=== PATIENT | female | born 1985 | race Caucasian/White ===

== ENCOUNTER 2019-07-02 19:44 | Inpatient (IN) | payer OTHER ==
[~2019-07-02] VITALS: Ht 165.1 cm; Wt 126.7 kg
[2019-07-02] MEDS ORDERED: IBUP200C25 PO (19:51)
[2019-07-02] MEDS ORDERED: OXYC15TA76 PO (19:51)
[2019-07-02] MEDS ORDERED: ACET500T15 PO (19:51)
[2019-07-02 20:51] LABS: BASO # 0.1 10^3/uL (0.0-0.2); BASO % 0.5 % (0.0-1.0); EOS # 0.5 10^3/uL (0.0-0.5); EOS % 4.7 % (0.0-3.0); HEMATOCRIT 30.1 % (36.0-47.0); HEMOGLOBIN 9.5 g/dl (12.0-15.5); LYMPH # 1.9 10^3/uL (1.5-5.0); LYMPH % 19.7 % (24.0-44.0); MEAN CORPUSCULAR HEMOGLOBIN 27.1 pg (27.0-33.0); MEAN CORPUSCULAR HGB CONC 31.6 g/dl (32.0-36.5); MEAN CORPUSCULAR VOLUME 85.8 fl (80.0-96.0); MONO # 0.5 10^3/uL (0.0-0.8); MONO % 4.6 % (0.0-5.0); NEUTROPHILS # 6.8 10^3/uL (1.5-8.5); NEUTROPHILS % 69.9 % (36.0-66.0); PLATELET COUNT, AUTOMATED 330 10^3/uL (150-450); RED BLOOD COUNT 3.51 10^6/uL (4.00-5.40); WHITE BLOOD COUNT 9.7 10^3/uL (4.0-10.0)
[2019-07-02] MEDS: DOCUSATE SODIUM 100 MG CAP PO SCH (21:00)
[2019-07-02] MEDS: ENOXAPARIN 120 MG/0.8 ML SYR (J1650) SC SCH (21:00)
[2019-07-02 21:33] LABS: ALBUMIN 2.4 GM/DL (3.2-5.2); ALT/SGPT 24 U/L (12-78); BILIRUBIN,DIRECT < 0.1 MG/DL (0.0-0.2); BILIRUBIN,TOTAL 0.2 MG/DL (0.2-1.0); BLOOD UREA NITROGEN 16 MG/DL (7-18); CALCIUM LEVEL 8.4 MG/DL (8.5-10.1); CARBON DIOXIDE LEVEL 28 MEQ/L (21-32); CHLORIDE LEVEL 107 MEQ/L (98-107); CK-MB VALUE MASS < 1.0 NG/ML (<3.6); CPK CREATINE PHOSPHOKINASE 54 U/L (26-192); CREATININE FOR GFR 0.73 MG/DL (0.55-1.30); GLOMERULAR FILTRATION RATE > 60.0 (>60); GLUCOSE, FASTING 94 MG/DL (70-100); LIPASE 87 U/L (73-393); MB/CK RELATIVE INDEX 1.85 (< OR =4); NT-PRO BNP 69 PG/ML (<125); POTASSIUM SERUM 4.4 MEQ/L (3.5-5.1); SODIUM LEVEL 141 MEQ/L (136-145); TOTAL PROTEIN 5.9 GM/DL (6.4-8.2); TROPONIN I < 0.02 NG/ML (< 0.10)
[2019-07-02] MEDS ORDERED: ISOVUE-370 76% 100ML VIAL (Q9967) As Ordered ONE (22:16)
--- NOTE | 2019-07-02 23:55 | REPVR ---
PROCEDURE INFORMATION: Exam: CT Angiography Chest With Contrast Exam date and time: 07/02/2019 10:01 PM Age: 34 years old Clinical indication: Chest pain; Type not specified; Additional info: Son/csection 4 days ago TECHNIQUE: Imaging protocol: Computed tomographic angiography of the chest with intravenous contrast. 3D rendering: MIP and/or 3D reconstructed images were created by the technologist. Radiation optimization: All CT scans at this facility use at least one of these dose optimization techniques: automated exposure control; mA and/or kV adjustment per patient size (includes targeted exams where dose is matched to clinical indication); or iterative reconstruction. Contrast material: ISO; Contrast volume: 75 ml; Contrast route: AC; COMPARISON: CR PORTABLE CHEST X-RAY 07/02/2019 8:31 PM FINDINGS: Pulmonary arteries: Inadequate opacification of pulmonary arteries with motion artifact centrally. Pulmonary embolism is not excluded. Aorta: Motion artifact obscures margination for measurement. Lungs: Unremarkable. No consolidation. No masses. Pleural space: Unremarkable. No pneumothorax. No pleural effusion. Heart: Unremarkable. No cardiomegaly. No pericardial effusion. Lymph nodes: Unremarkable. No enlarged lymph nodes. Bones/joints: Unremarkable. No acute fracture. Soft tissues: Unremarkable. IMPRESSION: Inadequate opacification of pulmonary arteries. Pulmonary embolism is not excluded. Electronically signed by: Fercho Banks On 07/02/2019 23:54:59 PM
--- NOTE | 2019-07-03 00:59 | REPVR ---
PROCEDURE INFORMATION: Exam: US Duplex Lower Extremity Veins Exam date and time: 07/03/2019 12:51 AM Age: 34 years old Clinical indication: Pain; Leg, upper and leg, lower; Bilateral; Patient HX: on Saturday; Additional info: Swelling/pain TECHNIQUE: Imaging protocol: Real-time duplex ultrasound of the Lower Extremities with 2-D hu scale, color Doppler flow and spectral waveform analysis with image documentation. Complete exam focused on the bilateral lower extremity veins. COMPARISON: No relevant prior studies available. FINDINGS: Right deep veins: Unremarkable. The common femoral, femoral, proximal profunda femoral and popliteal veins are patent without thrombus. Normal Doppler waveforms. Normal compressibility and/or augmentation response. Right superficial veins: Saphenofemoral junction is patent without thrombus. Left deep veins: Unremarkable. The common femoral, femoral, proximal profunda femoral and popliteal veins are patent without thrombus. Normal Doppler waveforms. Normal compressibility and/or augmentation response. Left superficial veins: Saphenofemoral junction is patent without thrombus. Soft tissues: Unremarkable. IMPRESSION: Negative bilateral lower extremity venous duplex exam without evidence of deep venous thrombosis. Electronically signed by: Fercho Banks On 07/03/2019 00:59:24 AM
--- NOTE | 2019-07-03 01:03 | REP ---
Clinical: Chest pain . Comparison: None . Findings: The mediastinum and cardiac silhouette are stable and within normal limits for portable technique. The lung rosado are clear without acute consolidation, effusion, or pneumothorax. Skeletal structures are intact. Impression: No acute cardiopulmonary process appreciated. Electronically Signed by Eric Alfaro MD 07/03/2019 12:56 A
--- NOTE | 2019-07-03 01:41 | HPEPDOC ---
[facility] Medical History & Physical Date of Admission Jul 03, 2019 Date of Service: Jul 03, 2019 Primary Care Physician: A Other Provider Zaynab Capps Attending Physician: KIM RAMSEY MD History and Physical TIME OF SERVICE: 2:20 AM CHIEF COMPLAINT: Chest pain HISTORY OF PRESENT ILLNESS: This is a 34-year-old female who presents with complaints of 6 out of 10 bilateral chest and back pain that began yesterday. The pain, which is now resolved was made worse by taking deep breaths and was alleviated by resting. Others as he does symptoms include lightheadedness and lower extremity edema She gave 5 days ago at [facility]. Her baby is currently in the NICU here. Her d-dimer was elevated, she had a CTA of the chest which was indeterminate because of inadequate opacification of the pulmonary arteries and negative bilateral lower extremity duplex. Per discussion with ER provider the CTA cannot be repeated for 24 hours. REVIEW OF SYSTEMS: 12 point review of systems negative except as listed in HPI PAST MEDICAL/ SURGICAL HISTORY: Anemia. Hypothyroidism SOCIAL HISTORY: She doesn't smoke FAMILY HISTORY: Coronary artery disease. Her sister had "blood clots" after a cholecystectomy ALLERGIES: Please see below. HOME MEDICATIONS: Please see below. PHYSICAL EXAMINATION: VITAL SIGNS: Please see below. GEN: well-nourished / well developed/not apprehensive INTEGUMENT: not flushed HEENT: NCAT CVS: RRR/NMRG/ 3+ bilateral lower extremity extremity edema / chest pain is not reproducible with palpation LUNGS: lungs are clear to auscultation bilaterally on room air ABDOMEN: Contour ( obese) / soft & not tender with palpation MSK/EXTREMITIES: range of motion intact in all 4 extremities NEURO: CN 2-12 are grossly intact / speech is not dysarthric PSYCH: alert and oriented to person place and time/ able to understand and follow all commands LABORATORY DATA: See below. IMAGING: Chest x-ray unremarkable. CTA " IMPRESSION: Inadequate opacification of pulmonary arteries. Pulmonary embolism is not excluded. " Bilateral ultrasound of the lower extremities " IMPRESSION: Negative bilateral lower extremity venous duplex exam without evidence of deep venous thrombosis. " ASSESSMENT: Ms. White is a 34-year-old female with a history of hypothyroidism and anemia who is 5 days ; she presented with complaints of chest pain and lower extremity edema and will be admitted pending VQ scan to rule out PE. PLAN: 1. Chest pain. Possibly due to anxiety vs PE vs preeclampsia D-dimer, CT, and bilateral lower extremity duplex as above She is not hypotensive or bradycardic and based on the BMP and troponin does not have signs of right heart strain. Plan: Admit to medical floor/telemetry/follow-up serial troponins/will give empiric treatment dose Lovenox pending VQ scan in the morning / f/u urine st udies 2. Bilateral lower extremity edema. She reports developing hypertension towards the end of her & her BP is high today. The CMP is unremarkable Plan: Follow-up UA and urine protein creatinine ratio to screen for post preeclampsia 3. Normocytic normochromic Anemia. Plan: Follow-up iron panel 4. Hypothyroidism. Plan: Continue levothyroxine. 5 Obesity Her BMI is 46.5 This complicates care Plan: Follow-up A1c/can f/u w PCP for STOP BANG questionnaire, registered respiratory technician consult / recommend cardiovascular exercise for 40 min 4-5 days a week DVT PROPHYLAXIS: N/A. She is on treatment dose Lovenox DISPOSITION: Home after less than 2 midnight's stay Vital Signs Vital Signs Date Time Temp Pulse Resp B/P (MAP) Pulse Ox O2 Delivery O2 Flow Rate FiO2 07/02/19 22:59 99.0 84 18 153/95 (114) 100 Room Air Laboratory Data Labs 24H Laboratory Tests 2 07/02/19 20:18: Immature Granulocyte % (Auto) 0.6, Neutrophils (%) (Auto) 69.9H, Lymphocytes (%) (Auto) 19.7L, Monocytes (%) (Auto) 4.6, Eosinophils (%) (Auto) 4.7H, Basophils (%) (Auto) 0.5, Neutrophils # (Auto) 6.8, Lymphocytes # (Auto) 1.9, Monocytes # (Auto) 0.5, Eosinophils # (Auto) 0.5, Basophils # (Auto) 0.1, Nucleated Red Blood Cells % (auto) 0.0, Anion Gap 6L, Glomerular Filtration Rate > 60.0, Calcium Level 8.4L, Total Bilirubin 0.2, Direct Bilirubin < 0.1, Aspartate Amino Transf (AST/SGOT) 18, Alanine Aminotransferase (ALT/SGPT) 24, Alkaline Phosphatase 105, Total Creatine Kinase 54, Creatine Kinase MB < 1.0, Creatine Kinase MB Relative Index 1.85, Troponin I < 0.02, PJ-Yad-B-Type Natriuretic Peptide 69, Total Protein 5.9L, Albumin 2.4L, Albumin/Globulin Ratio 0.69L, Lipase 87 07/03/19 00:26: D-Dimer, Quantitative 1839.36H CBC/BMP Laboratory Tests 07/02/19 20:18 Home Medications Scheduled Levothyroxine Sodium (Synthroid) 25 Mcg Tablet, 25 MCG PO DAILY Scheduled PRN Acetaminophen (Acetaminophen) 500 Mg Tablet, 1,000 MG PO Q6H PRN for PAIN Ibuprofen (Ibuprofen) 200 Mg Tablet, 200 MG PO Q6H PRN for PAIN Allergies Coded Allergies: oxycodone (Verified Adverse Reaction, Intermediate, VOMITING, 07/03/19) A-FIB/CHADSVASC A-FIB History Current/History of A-Fib/PAF?: No Current PO Anticoag Therapy: No KIM RAMSEY MD Jul 03, 2019 01:41
[2019-07-03] MEDS ORDERED: ACETAMINOPHEN TAB 650MG DOSE (2X325MG) PO PRN (01:45)
[2019-07-03] MEDS ORDERED: MAALOX 30 ML SUSP *UDC PO PRN (01:45)
[2019-07-03] MEDS ORDERED: IBUP-1730 PO (01:57)
[2019-07-03] MEDS ORDERED: APAP500T10 PO (01:57)
[2019-07-03] MEDS ORDERED: SYNT25TA PO (01:57)
[2019-07-03 02:50] VITALS: BP 158/86
[2019-07-03 05:12] LABS: TROPONIN I < 0.02 NG/ML (< 0.10)
[2019-07-03] MEDS ORDERED: LEVOTHYROXINE 25MCG TABLET (0.025MG) PO SCH (06:00)
[2019-07-03 06:24] LABS: FERRITIN 23 NG/ML (8-252); IRON (FE) 31 UG/DL (50-170); PERCENT SATURATION 7.3 % (13.2-45.0); TOTAL IRON BINDING CAPACITY 425 UG/DL (250-450)
[2019-07-03] MEDS: DOCUSATE SODIUM 100 MG CAP PO SCH (08:49)
[2019-07-03] MEDS: ENOXAPARIN 120 MG/0.8 ML SYR (J1650) SC SCH (08:49)
[2019-07-03 10:00] VITALS: BP 145/69
--- NOTE | 2019-07-03 11:50 | REP ---
V/Q SCAN: Following the intravenous administration of 5.5 millicuries technetium 99m tagged MAA and in the inhalation of 1.0 millicuries technetium 99m DTPA aerosol multiple images of the lungs are obtained in various projections. There is mild cardiomegaly with a matching defect in the left base. No areas of V/Q mismatch are seen. IMPRESSION: Low probability of pulmonary embolism. Electronically Signed by Clay Yancey MD 07/03/2019 12:57 P
--- NOTE | 2019-07-03 12:10 | DS.PDOC ---
Discharge Summary General Date of Admission Jul 03, 2019 at 01:32 Date of Discharge 07/03/2019 Discharge Summary DISCHARGE DIAGNOSIS: Chest pain secondary to MSK from recent surgery vs anxiety. SECONDARY DIAGNOSIS: 1. Bilateral Lower extremity edema due to fluid retension from recent . 2. Normocytic Normochromic Anemia 3. Hypothyroidism. 4. Obesity PROCEDURES PERFORMED DURING STAY: None. CONSULTANTS:None HOSPITAL COURSE: She was admitted to [facility] with telemetry. She had extensive workup done including d-dimer, CT angios of the chest and VQ scan which was negative for pulmonary embolism. She was given 1 dose of therapeutic Lovenox while admitted. Because imaging was negative for a pulmonary embolism she does not need to continue with anticoagulation. Lower extremity edema was evaluated with venous ultrasound which was negative for DVTs. Symptoms resolved while she was admitted. She was stable for discharge. DISCHARGE MEDICATIONS: Please see below. ALLERGIES: Please see below. SUBJECTIVE: Patient was seen and examined this morning. She states her chest pain is completely resolved. She denies any palpitation, shortness of breath,, breath, nausea, vomiting, fevers, or chills OBJECTIVE: PHYSICAL EXAMINATION: VITAL SIGNS: Please see below. GENERAL: Pleasant 34 year old female laying in bed awake alert oriented speaking in complete sentences no acute distress HEENT: Atraumatic, normocephalic, Moist mucous membranes No JVD CARDIOVASCULAR: S1 S2 regular no additional heart sounds appreciated. RESPIRATORY: Clear to auscultation bilaterally. ABDOMINAL: [Bowel sounds present, obese abdomen soft and minimal tenderness in the lower quadrants over scar. EXTREMITIES: No clubbing, cyanosis, lower extremity non-pitting edema bilaterally up to ankls NEUROLOGICAL: no gross focal deficits appreciated PSYCHOLOGICAL: Appropriate LABORATORY DATA, MICROBIOLOGY: Please see below. IMAGING STUDIES: 07/02/2019 Chest x-ray Impression: No acute cardiopulmonary process appreciated. CT angio chest Inadequate opacification of pulmonary arteries. Pulmonary embolism is not excluded. 07/03/2019 Vascular ultrasound IMPRESSION: Negative bilateral lower extremity venous duplex exam without evidence of deep venous thrombosis. Lung VQ scan IMPRESSION: Low probability of pulmonary embolism. DISPOSITION:Home DISCHARGE CONDITION: Improved and Stable. FOLLOW UP: 1. F.u. w/ pcp in 7-10 days 2. If symptoms return or worsen please call your PCP or return to the ER. ACTIVITY: As prior to admission. DIET: As prior to admission TIME SPENT ON DISCHARGE: 50 minutes Vital Signs/I&Os Vital Signs Date Time Temp Pulse Resp B/P (MAP) Pulse Ox O2 Delivery O2 Flow Rate FiO2 07/03/19 10:00 96.9 90 17 145/69 (94) 98 Room Air I&O- Last 24 Hours up to 6 AM 07/03/19 06:00 Intake Total 250 ml Output Total 175 ml Balance 75 ml Laboratory Data Labs 24H Laboratory Tests 2 07/02/19 20:18: Immature Granulocyte % (Auto) 0.6, Neutrophils (%) (Auto) 69.9H, Lymphocytes (%) (Auto) 19.7L, Monocytes (%) (Auto) 4.6, Eosinophils (%) (Auto) 4.7H, Basophils (%) (Auto) 0.5, Neutrophils # (Auto) 6.8, Lymphocytes # (Auto) 1.9, Monocytes # (Auto) 0.5, Eosinophils # (Auto) 0.5, Basophils # (Auto) 0.1, Nucleated Red Blood Cells % (auto) 0.0, Anion Gap 6L, Glomerular Filtration Rate > 60.0, Calcium Level 8.4L, Total Bilirubin 0.2, Direct Bilirubin < 0.1, Aspartate Amino Transf (AST/SGOT) 18, Alanine Aminotransferase (ALT/SGPT) 24, Alkaline Phospha tase 105, Total Creatine Kinase 54, Creatine Kinase MB < 1.0, Creatine Kinase MB Relative Index 1.85, Troponin I < 0.02, YL-Wfs-L-Type Natriuretic Peptide 69, Total Protein 5.9L, Albumin 2.4L, Albumin/Globulin Ratio 0.69L, Lipase 87 07/03/19 00:26: D-Dimer, Quantitative 1839.36H 07/03/19 04:34: Troponin I < 0.02, Estimated Mean Plasma Glucose 97, Hemoglobin A1c 5.0, Iron Level 31L, Total Iron Binding Capacity 425, Transferrin % Saturation 7.3L, Ferritin 23 07/03/19 10:05: Troponin I < 0.02 CBC/BMP Laboratory Tests 07/02/19 20:18 Discharge Medications Scheduled Levothyroxine Sodium (Synthroid) 25 Mcg Tablet, 25 MCG PO DAILY, (Reported) Scheduled PRN Acetaminophen (Acetaminophen) 500 Mg Tablet, 1,000 MG PO Q6H PRN for PAIN, (Reported) Ibuprofen (Ibuprofen) 200 Mg Tablet, 200 MG PO Q6H PRN for PAIN, (Reported) Allergies Coded Allergies: oxycodone (Verified Adverse Reaction, Intermediate, VOMITING, 07/03/19) Attending Note I personally saw and evaluated the patient. I agree with the findings and the plan of care documented above in the resident's note. i personally spent 35 mins in counselling the patient and coordinating her discharge. NORMAN LENZ DO Jul 03, 2019 12:10 DAVID LOYD MD Jul 04, 2019 15:22
--- NOTE | 2019-07-03 13:25 | ECGEPIP ---
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
== END 2019-07-03 12:56 | disposition home or self-care (01) | DRG 561 ==
LOC: M ED 19:44 → M ED INP 07-03 01:32 → ENRESERV 07-03 02:23 → M MSPAV 07-03 02:49
PROVIDERS: ADMIT Internal Medicine; ATTEND Internal Medicine Nephrology
DX: O90.89 Other complications of the puerperium, not elsewhere classified (principal); Z68.42 Body mass index [BMI] 45.0-49.9, adult; O99.03 Anemia complicating the puerperium; E66.9 Obesity, unspecified; D64.9 Anemia, unspecified; Z79.899 Other long term (current) drug therapy; Z88.5 Allergy status to narcotic agent; R07.89 Other chest pain; O99.285 Endocrine, nutritional and metabolic diseases complicating the puerperium; E03.9 Hypothyroidism, unspecified; O99.215 Obesity complicating the puerperium; R60.0 Localized edema